=== PATIENT | female | born 1965 | race Caucasian/White ===

== ENCOUNTER 2018-03-25 19:26 | Emergency (ER) | payer BC ==
[~2018-03-25] VITALS: Ht 167.6 cm; Wt 90.7 kg
[2018-03-25] MEDS ORDERED: MEDROLDOSEPACK PO (20:30)
[2018-03-25] MEDS ORDERED: ZANAFLEX4 MG PO (20:30)
[2018-03-25] MEDS ORDERED: IBU800 MG PO (20:30)
[2018-03-25 20:51] VITALS: BP 141/88
== END 2018-03-25 20:52 | disposition home or self-care (01) ==
LOC: M.ERS 19:26
DX: M54.31 Sciatica, right side (principal); Z90.711 Acquired absence of uterus with remaining cervical stump

== ENCOUNTER 2021-03-25 18:39 | Inpatient (IN) | payer OTHER ==
[~2021-03-25] VITALS: Ht 170.2 cm; Wt 99.8 kg
[~2021-03-25 18:39] MED LIST: IBU800 MG PO; MEDROLDOSEPACK PO; ZANAFLEX4 MG PO
[2021-03-25 18:43] VITALS: BP 145/77
[2021-03-25 19:29] LABS: ABSOLUTE BASOPHILS 0.1 thou/uL (0.0-0.2); ABSOLUTE EOSINOPHILS 0.1 thou/uL (0.0-0.7); ABSOLUTE LYMPHOCYTES 1.2 thou/uL (0.8-5.3); ABSOLUTE MONOCYTES 0.4 thou/uL (0.0-1.2); ABSOLUTE NEUTROPHILS 5.4 thou/uL (1.6-8.1); BASOPHILS 0.9 %; EOSINOPHILS 1.1 %; HEMATOCRIT 43.9 % (37.0-47.0); HEMOGLOBIN 14.8 gm/dL (12.0-15.0); LYMPHOCYTES 16.4 %; MCH 30.2 pg (26.0-34.0); MCHC 33.6 g/dL (28.0-37.0); MCV 89.9 fL (80.0-100.0); MONOCYTES 5.7 %; MPV 6.6 fl. (7.2-11.1); NUCLEATED RBCS 0 /100WBC; PLATELET COUNT* 457 thou/uL (150-400); POLYS 75.9 %; RBC 4.89 mil/uL (4.20-5.00); RDW-CV 13.7 % (10.5-14.5); WBC 7.1 thou/uL (4.0-11.0)
[2021-03-25 19:36] LABS: CALCIUM 9.4 mg/dL (8.5-10.1)
[2021-03-25 19:40] LABS: BE 3.8 mmol/L (-2 to +3); PCO2 28.8 mmHg (35.0-45.0); pH 7.556 (7.340-7.450)
[2021-03-25 19:47] LABS: POTASSIUM 2.7 mmol/L (3.5-5.1); TOTAL BILIRUBIN 0.4 mg/dL (<0.1-1.0); TOTAL PROTEIN 8.2 g/dL (6.4-8.2)
--- NOTE | 2021-03-25 22:42 | NUR ---
JOSE LUJAN- SON: [phone]
[2021-03-26 02:00] VITALS: BP 122/76
[2021-03-26 05:57] VITALS: BP 152/88
[2021-03-26 07:52] LABS: CREATININE 0.9 mg/dL (0.6-1.3); POTASSIUM 3.2 mmol/L (3.5-5.1)
[2021-03-26 10:00] VITALS: BP 157/60
[2021-03-26 14:00] VITALS: BP 129/70
--- NOTE | 2021-03-26 16:13 | EKG ---
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: : [id number] Requested By: Nadine Patel Order Number: [id number] MD: Kenroy Vega Measurements Intervals [place] Rate: 112 P: 24 IN: 138 QRS: 14 QRSD: 97 T: -15 QT: 336 QTc: 459 Interpretive Statements Sinus tachycardia Low voltage, precordial leads Borderline repolarization abnormality Baseline wander in lead(s) V1 No previous ECG available for comparison Electronically Signed On 03-26-2021 16:13:44 CDT by Kenroy Vega [email or web address] <ELECTRONICALLY SIGNED> By: Kenroy Vega MD, [facility] 03/26/21 1613 [id number] 190 Kenroy Vega MD, [facility] /EPI
--- NOTE | 2021-03-26 16:22 | NUR ---
Infection Prevention: Per [facility] the patient had a positive Covid Test on 03/12/21.
[2021-03-26 17:35] VITALS: BP 129/70
[2021-03-27 00:50] VITALS: BP 124/66
--- NOTE | 2021-03-27 04:21 | NUR ---
PT ALERT AND ORIENTED, ON HHFC DURING DAY/BIPAP AT NIGHT 100%. UP AD ANSLEY TO RESTROOM, RECEIVED ALL MEDS SCHEDULED. NO WORSENING OF CONDITION/SOB. SINUS RHYTHM ON MONITOR. WILL CONTINUE TO MONITOR.
[2021-03-27 04:40] VITALS: BP 142/75
[2021-03-27 08:36] LABS: ABSOLUTE MONOCYTES 0.4 thou/uL (0.0-1.2); ABSOLUTE NEUTROPHILS 7.2 thou/uL (1.6-8.1); HEMATOCRIT 40.2 % (37.0-47.0); HEMOGLOBIN 13.7 gm/dL (12.0-15.0); LYMPHOCYTES 11.3 %; MCH 30.5 pg (26.0-34.0); MCHC 34.1 g/dL (28.0-37.0); MCV 89.5 fL (80.0-100.0); MONOCYTES 4.8 %; MPV 6.5 fl. (7.2-11.1); NUCLEATED RBCS 0 /100WBC; PLATELET COUNT* 432 thou/uL (150-400); POLYS 83.9 %; RBC 4.49 mil/uL (4.20-5.00); WBC 8.6 thou/uL (4.0-11.0)
[2021-03-27 08:51] LABS: CALCIUM 9.4 mg/dL (8.5-10.1); CREATININE 0.8 mg/dL (0.6-1.3); POTASSIUM 3.7 mmol/L (3.5-5.1)
--- NOTE | 2021-03-27 11:19 | NUR ---
The patient is alert. Able to make needs known. Denies CP or SOB. Call light within reach. Up ad joe to the BSC.
[2021-03-27 12:00] VITALS: BP 121/83
--- NOTE | 2021-03-27 14:21 | CON ---
[address] [address] CONSULTATION Name: HELENA OSPINA Room: [address] IN .R.#: [id number] Admission: 03/25/21 Attend Phys: Deepa Andersen Discharge: Date of : 69 Report #: [id number] THIS REPORT FOR: cc: Wade Fernandes MD, Ram MD Pervez, Adeel MD ~ DATE OF CONSULTATION: 03/26/2021 REQUESTING PHYSICIAN: Shorty Zacarias MD INDICATION FOR CONSULTATION: Acute hypoxemic respiratory failure secondary to COVID-19. HISTORY OF PRESENT ILLNESS: A 56-year-old female with past medical history as mentioned below. She is a lifetime nonsmoker, does not have a past history of a cardiac or respiratory disease. The patient appears to be more overweight than is apparent by her stated weight and I do suspect that she has underlying obstructive sleep apnea. The patient was diagnosed with COVID-19 about 14 days ago. She has not been vaccinated for COVID-19. She has had a waxing and waning course. Eventually, she started having increasing shortness of breath, which is the reason that she came to the emergency room here. She has had a cough, not much sputum, no chest pain, mild swelling of lower extremities, no calf pain. Does not have upper respiratory complaints. The patient; however, is very hypoxemic at this time and is requiring a heated high-flow nasal cannula to maintain O2 saturation in the low 90s. REVIEW OF SYSTEMS: The patient's review of systems for 12 points is negative except as mentioned above. PAST MEDICAL HISTORY: Obesity, gallbladder surgery, hysterectomy. SOCIAL HISTORY: Lifetime nonsmoker. Only occasional alcohol use. No known history of illegal drug use. ALLERGIES: CODEINE. CURRENT MEDICATIONS: List in [employer] reviewed. HOME MEDICATIONS: List also in [employer] reviewed. FAMILY HISTORY: No pertinent family history. PHYSICAL EXAMINATION: [place] [address] CONSULTATION Name: HELENA OSPINA Room: [address]#: [id number] Admission: 03/25/21 Attend Phys: Deepa Andersen Discharge: Date of : 69 Report #: [id number] GENERAL: She is alert, awake and oriented. VITAL SIGNS: She has a pulse of 90 and a blood pressure 130/48. She is on 90% FiO2 at 55 liters of flow on a heated high-flow nasal cannula, saturating around 94%. She is mildly tachypneic, respiratory rate in the low 20s. She is afebrile with a temperature of 36, body mass index 34. HEENT: Head is normocephalic and atraumatic. She has a narrow airway. NECK: Does not show raised JVP asymmetry, mass or lymph nodes. CHEST: Symmetrical expansion on inspection and palpation. On auscultation, breath sounds are bilaterally equal, decreased. No added sounds. HEART: Regular, no murmur. ABDOMEN: Soft and nontender. EXTREMITIES: Lower extremities show trace edema, no calf tenderness. SKIN: Dry and intact. NEUROLOGIC: Moves all extremities bilaterally equally and spontaneously. No focal deficit identified. LABORATORY DATA: The patient's chest x-ray and CTA chest reviewed. In summary, there are extensive infiltrates consistent with COVID-19. There are no pulmonary emboli identified. The study is slightly limited for pulmonary emboli, though the lab work is in [employer] and this is reviewed. Arterial blood gas shows acute hypoxemic respiratory failure, also changes secondary to hypokalemia. ASSESSMENT AND PLAN: 1. Acute hypoxemic respiratory failure secondary to COVID-19. I suspect that she has underlying obstructive sleep apnea. Therefore, we will start with BiPAP while asleep. Continue to titrate oxygen, avoid supine sleep, out of bed to chair as tolerated. 2. COVID-19, agree with dexamethasone as below. I will try to diurese her tomorrow. Therefore, I did not increase the scheduled dose of dexamethasone for now, but I will go ahead and give her a bolus of 10 mg of dexamethasone now. She is currently on 6 mg daily. If oxygen needs a persistent at the current level, then I will be inclined to increase the scheduled Decadron dose. Agree with remdesivir. Follow LFTs. Convalescent plasma likely will be of limited benefit at this time considering that she is 14 days after the diagnosis. I do recommend giving her Actemra. Unfortunately, we do not have Actemra available at this time. 3. Pulmonary infiltrates. Agree with doxycycline. In order to limit fluid intake, I switched it to p.o. We will add ceftriaxone. More cultures and serologies are ordered. 4. Fluid overload/hypokalemia. Note that her BUN is only 9. I feel that there is a component of fluid overload. Despite the fact that the proBNP is normal, which basically indicates that the right atrium is not dilated. I would like to replace the potassium first. I also requested that a magnesium will added to [address] [address] CONSULTATION Name: HELENA OSPINA Room: [address] IN [facility]#: [id number] Admission: 03/25/21 Attend Phys: Deepa Andersen Discharge: Date of : 69 Report #: [id number] the labs already drawn. Once the magnesium and potassium are replaced, I would subsequently plan to diurese her and see if this leads to improvement in O2 saturations. 5. Deep venous thrombosis prophylaxis. We will increase his Lovenox to intermediate dose. 6. Hyperglycemia, insulin sliding scale. 7. Gastrointestinal prophylaxis, already on Protonix. 8. Clostridium difficile prophylaxis, Lactinex. 9. Obesity, suspected obstructive sleep apnea. Thank you for this consultation. <ELECTRONICALLY SIGNED> By: Kwan Lyles MD 03/27/21 1421 06 2057Ajosiane Lyles MD /nt
--- NOTE | 2021-03-27 14:49 | NUR ---
Pt covid positive. On 55L, unable to speak on phone. Pt's is also in this hospital, attempted to reach x3, unable to, will continue to try and reach via phone to complete Pt's assessment. No weekend dc planned.
[2021-03-27 15:53] VITALS: BP 114/78
[2021-03-27 21:40] VITALS: BP 128/70
[2021-03-28 00:25] VITALS: BP 136/79
--- NOTE | 2021-03-28 04:18 | NUR ---
PT ALERT AND ORIENTED, UP TO COMMODE AD ANSLEY, REFUSES BIPAP AT NIGHT SHE IS ON HHFC 55L 85% AT THIS TIME AND SAT 88-90%. RECEIVED ALL MEDS SCHEDULED. SOB WITH EXERTION. SINUS RHYTHM ON MONITOR. WILL CONTINUE TO MONITOR.
[2021-03-28 04:27] VITALS: BP 135/83
[2021-03-28 05:32] LABS: HEMATOCRIT 39.2 % (37.0-47.0); HEMOGLOBIN 13.3 gm/dL (12.0-15.0); MCH 30.4 pg (26.0-34.0); MCHC 33.8 g/dL (28.0-37.0); MCV 89.9 fL (80.0-100.0); MPV 6.7 fl. (7.2-11.1); NUCLEATED RBCS 0 /100WBC; PLATELET COUNT* 374 thou/uL (150-400); RBC 4.36 mil/uL (4.20-5.00); WBC 9.3 thou/uL (4.0-11.0)
[2021-03-28 06:01] LABS: ALBUMIN 2.7 g/dL (3.4-5.0); CALCIUM 9.1 mg/dL (8.5-10.1); CREATININE 0.9 mg/dL (0.6-1.3); MAGNESIUM 2.1 mg/dL (1.8-2.4); TOTAL BILIRUBIN 0.2 mg/dL (<0.1-1.0); TOTAL PROTEIN 7.4 g/dL (6.4-8.2)
[2021-03-28 06:35] LABS: ABSOLUTE LYMPHOCYTES 0.7 thou/uL (0.8-5.3); ABSOLUTE MONOCYTES 0.1 thou/uL (0.0-1.2); ABSOLUTE NEUTROPHILS 8.5 thou/uL (1.6-8.1); PLATELET ESTIMATE ADEQUATE
[2021-03-28 08:00] VITALS: BP 150/87
[2021-03-28 12:12] VITALS: BP 140/77
[2021-03-28 16:00] VITALS: BP 137/75
--- NOTE | 2021-03-28 20:41 | NUR ---
I ASSUMED CARE OF THE PATIENT AT 0700. SHE IS ALERT AND ORIENTED X4 AND IS UP WITH SBA. BED IS IN THE LOW LOCKED POSITION AND CALL LIGHT IS IN REACH. PATIENT NEEDS ARE MET DURING HOURLY ROUNDING AND PAIN IS DENIED. OXYGEN USE IS DECREASED AND CHARTED BY RT. SHE HAD MULTIPLE BOWEL MOVEMENTS. BLOOD GLUCOSE WAS MONITORED. SPIRITS ARE IMPROVING AND PATIENT STATES THAT SHE IS FEELING MUCH BETTER. SHE REFUSES BIPAP BECUASE OF THE PRESSURE. WILL CONTINUE TO MONITOR.
[2021-03-28 21:00] VITALS: BP 128/59
[2021-03-29 00:27] VITALS: BP 128/71
[2021-03-29 04:12] VITALS: BP 118/66
--- NOTE | 2021-03-29 05:11 | NUR ---
PT AO X4 SITTING IN RECLINER WHERE SHE STATED ALL NIGHT, SHE HAS HFNC 15L IN PLACE, SATTING APPROPRIATELY. PT HAS PICC TO RUE THAT DRAWS AND FLUSHES WELL. PT REPORTS FEELING BETTER AND IS ANXIOUS TO GO HOME SOON. PT IS USING BSC NEAR CHAIR INDEPENDENTLY. URINE IS CLEAR, YELLOW AND ADEQUATE AMOUNTS. PT REPORTS DIARRHEA IN RECENT DAYS BUT HAS SUBSIDED TODAY. LUNGS ARE DIMINISHED WITH PRODUCTIVE COUGH AT TIMES. MEDS PER EMAR, CRUSHED PT REPORTS HAVING SOME DIFFICLULTLY SWALLOWING PILLS. CALL LIGHT WITHIN REACH FOR PT SAFETY
[2021-03-29 08:00] VITALS: BP 142/74
[2021-03-29 11:26] VITALS: BP 113/61
[2021-03-29 18:03] VITALS: BP 128/67
--- NOTE | 2021-03-29 18:43 | NUR ---
RECEIVED REPORT AROUND 0715. ASSUMED CARE. VS AND ASSESSMENT CHARTED. IV INTACT RIGHT UPPER ARM PICC DOUBLE LUMEN. HEART MONITOR ATTACHED AT SR. PT UP IN CHAIR THIS SHIFT. MEDS GIVEN PER SEP. HOURLY ROUNDING PERFORMED. ISOLATION INTACT. BOWEL MOVEMENT TODAY. HI FLOW 13L. CALL LIGHT WITH IN REACH. WILL CONTINUE TO MONITOR.
[2021-03-30] VITALS: BP 108/61
[2021-03-30 04:00] VITALS: BP 111/67
--- NOTE | 2021-03-30 04:48 | NUR ---
PT AO X4 STILL IN RECLINER FROM YESTERDAY. PT REPORTS FEELING BETTER, OXYGEN USE DOWN TO 13L HFNC, SHE IS COUGHING MORE WITH SOME CLEAR PRODUCTION. OXYGEN SAT MAINTAINED 88-94 ALL NIGHT. STOOLS STILL SOFT, PT UP TO BSC INDEPENDENTLY WITHOUT ISSUE. PICC IN RUE, FLUSHES AND DRAWS BLOOD WELL. PT DENIES PAIN. CALL LIGHT IN REACH FOR SAFETY OF PT
[2021-03-30 04:52] LABS: ALBUMIN 2.9 g/dL (3.4-5.0); CALCIUM 9.4 mg/dL (8.5-10.1); CREATININE 0.9 mg/dL (0.6-1.3); MAGNESIUM 2.2 mg/dL (1.8-2.4); POTASSIUM 4.4 mmol/L (3.5-5.1); TOTAL BILIRUBIN 0.3 mg/dL (<0.1-1.0); TOTAL PROTEIN 7.2 g/dL (6.4-8.2)
[2021-03-30 05:05] LABS: ABSOLUTE LYMPHOCYTES 0.9 thou/uL (0.8-5.3); ABSOLUTE MONOCYTES 0.4 thou/uL (0.0-1.2); ABSOLUTE NEUTROPHILS 10.8 thou/uL (1.6-8.1); BASOPHILS 0.2 %; HEMATOCRIT 40.6 % (37.0-47.0); HEMOGLOBIN 13.7 gm/dL (12.0-15.0); LYMPHOCYTES 7.5 %; MCH 30.3 pg (26.0-34.0); MCHC 33.7 g/dL (28.0-37.0); MCV 89.7 fL (80.0-100.0); MONOCYTES 3.2 %; MPV 6.7 fl. (7.2-11.1); NUCLEATED RBCS 0 /100WBC; PLATELET COUNT* 386 thou/uL (150-400); POLYS 89.1 %; RBC 4.52 mil/uL (4.20-5.00); WBC 12.1 thou/uL (4.0-11.0)
[2021-03-30 08:00] VITALS: BP 120/72
[2021-03-30 12:00] VITALS: BP 110/70
--- NOTE | 2021-03-30 14:26 | NUR ---
Pt down to 7L, wean to 4L then will be medically ready to dc. Anticipate dc in 1-2 days. Ex ox at dc
[2021-03-30 16:00] VITALS: BP 112/65
--- NOTE | 2021-03-30 18:56 | NUR ---
RECEIVED REPORT AROUND 0715. ASSUMED CARE. VS AND ASSESSMENT CHARTED. IV INTACT. HEART MONITOR ATTACHED AT SR/ST. PT UP ADLIB TO BSC. MEDS GIVEN PER MAR. HOURLY ROUNDING PERFORMED. ISOLATION INTACT. CALL LIGHT WITH IN REACH. WILL CONTINUE TO MONITOR.
[2021-03-31 00:48] VITALS: BP 118/69
[2021-03-31 04:30] VITALS: BP 113/66
--- NOTE | 2021-03-31 05:11 | NUR ---
PT AO X4 ON 8L HFNC, SATTING IN MID 90s, COUGHING MORE BUT LITTLE PRODUCTION, SHE DID START DE-SATTING INTO HIGH 80S LAST PM AND WAS INCREASED TO 10L HFNC. PT LUNGS ARE CLEAR IN UPPERS WITH SOME FINE CRACKLES IN LOWERS. REPORTS BM THAT WAS SOFT BUT NOT DIARRHEA IT HAS BEEN PREVIOUSLY. PT ENCOURAGE TO DO INCENTIVE SPIROMETER 10X/HR TO IMPROVE LUNG FX. MEDS PER MAR, PT FEELING ENCOURAGED WITH PROGRESS.
[2021-03-31 05:50] LABS: CALCIUM 9.8 mg/dL (8.5-10.1); CREATININE 0.9 mg/dL (0.6-1.3); MAGNESIUM 2.4 mg/dL (1.8-2.4); POTASSIUM 4.7 mmol/L (3.5-5.1)
[2021-03-31 07:30] VITALS: BP 123/69
[2021-03-31 11:25] VITALS: BP 126/65
--- NOTE | 2021-03-31 12:23 | NUR ---
Nutrition: Pt admitted to COVID unit. Assessed for LOS. H/o OBE, suspected MARNI. Bipap HS. Wt: 219#. 2gm Na diet. Per RN, pt is eating well. BG 167, alb 2.9, prealb 26.1. Remdesivir, lasix. Consider low nutrition risk.
--- NOTE | 2021-03-31 15:14 | NUR ---
Pt on 15L, continue to wean to below 10 prior to dc.
[2021-03-31 16:00] VITALS: BP 119/61
--- NOTE | 2021-03-31 16:56 | NUR ---
PT REMAINED ALERT AND ORIENTED. PT RESTING IN CHAIR. ACCU CHECKS COMPLETED. HEART MONITORED. FALL RISK PRECAUTIONS IN PLACE. HOURLY ROUNDING COMPLETED. CALL LIGHT WITHIN REACH.
[2021-03-31 21:26] VITALS: BP 106/69
[2021-04-01 00:46] VITALS: BP 118/67
[2021-04-01 04:24] VITALS: BP 111/68
[2021-04-01 07:15] VITALS: BP 130/71
[2021-04-01 11:25] VITALS: BP 121/72
--- NOTE | 2021-04-01 16:02 | NUR ---
Pt at day 21 since diagnosis. On 15L. Pt will be inpt for several more days.
--- NOTE | 2021-04-01 17:13 | NUR ---
PT REMAINED ALERT AND ORIENTED. PT UP IN CHAIR ALL DAY. ACCU CHECKS COMPLETED. ISOLATION D/C. HEART MONITORED. HOURLY ROUNDING COMPLETED. CALL LIGHT WITHIN REACH.
[2021-04-01 17:20] VITALS: BP 128/68
[2021-04-01 21:00] VITALS: BP 120/68
[2021-04-02] VITALS: BP 141/69
[2021-04-02 04:00] VITALS: BP 113/69
[2021-04-02 06:36] LABS: HEMATOCRIT 43.9 % (37.0-47.0); HEMOGLOBIN 14.4 gm/dL (12.0-15.0); MCHC 32.9 g/dL (28.0-37.0); MCV 91.3 fL (80.0-100.0); MPV 6.8 fl. (7.2-11.1); RBC 4.81 mil/uL (4.20-5.00); RDW-CV 14.2 % (10.5-14.5); WBC 11.8 thou/uL (4.0-11.0)
[2021-04-02 06:46] LABS: CREATININE 0.8 mg/dL (0.6-1.3)
--- NOTE | 2021-04-02 07:40 | NUR ---
PT SLEPT MOST OF SHIFT. ASSESSMENT DOCUMENTED. MEDS GIVEN PER E-MAR. IV PATENT. NO REPORTS OF PAIN. PT REMAINED IN CHAIR ALL SHIFT. 11L NC. PT ABLE TO MAKE NEEDS KNOWN. WILL CONTINUE WITH PLAN OF CARE.
[2021-04-02 08:30] VITALS: BP 132/73
[2021-04-02 12:00] VITALS: BP 135/73
--- NOTE | 2021-04-02 15:11 | NUR ---
Pt down to 10L, continue to wean. Ex ox closer to dc.
[2021-04-02 16:00] VITALS: BP 136/70
[2021-04-02] MEDS ORDERED: DEXAMETHASONE1 MG PO (17:00)
[2021-04-02] MEDS ORDERED: PROAIR HFA8.5 GM INH (17:00)
[2021-04-02] MEDS ORDERED: PROTONIX40 M2 PO (17:00)
[2021-04-02 17:58] VITALS: BP 136/70
--- NOTE | 2021-04-02 19:01 | NUR ---
I ASSUMED CARE OF THE PATIENT AT 0700. SHE IS ALERT AND ORIENTED X4 AND IS UP WITH SBA. BED IS IN THE LOW LOCKED POSITION AND CALL LIGHT IS ON. PATIENT NEEDS ARE MET DURING HOURLY ROUNDING AND PAIN IS DENIED. OXYGEN IS TITRATED DOWN AND TOLERATED WELL. REST AND EXERCISE WAS DONE AND PATIENT WILL NEED 3L AT REST AND 4L DURING ACTIVITY AT HOME. JANETT WAS CONTACTED AND WILL FOLLOW UP WITH CASE MANAGMENT TOMORROW. SHE WILL DISCHARGE TO HOME WITH HER SON WHEN HE ARRIVES. BLOOD GLUCOSE IS MONITORED. RIDE WENT TO [facility], SO PATIENT IS BACK IN HER ROOM UNTIL HE ARRIVES. PICC LINE WAS D/C'D AND INTACT. PRESSURE WAS APPLIED AND PRESSURE DRESSING WAS UTILIZED.
== END 2021-04-02 19:10 | disposition home or self-care (01) | DRG 177 ==
LOC: M.ERS 18:39 → M.TBA-ER 20:17 → M.ORTHSURG 20:17
PROVIDERS: Emergency Medicine; Family Medicine; Internal Medicine; Internal Medicine Critical Care Medicine; Nurse Practitioner Family; ADMIT Internal Medicine; ATTEND Internal Medicine
PROC: 5A0955A Assistance with Respiratory Ventilation, Greater than 96 Consecutive Hours, High Flow/Velocity Cannula (ICD-10-PCS; principal; 2021-03-25)
PROC: XW033E5 Introduction of Remdesivir Anti-infective into Peripheral Vein, Percutaneous Approach, New Technology Group 5 (ICD-10-PCS; 2021-03-26)
PROC: 02HV33Z Insertion of Infusion Device into Superior Vena Cava, Percutaneous Approach (ICD-10-PCS; 2021-03-29)
PROC: B5181ZA Fluoroscopy of Superior Vena Cava using Low Osmolar Contrast, Guidance (ICD-10-PCS; 2021-03-29)
PROC: B548ZZA Ultrasonography of Superior Vena Cava, Guidance (ICD-10-PCS; 2021-03-29)
PROC: 5A0935A Assistance with Respiratory Ventilation, Less than 24 Consecutive Hours, High Flow/Velocity Cannula (ICD-10-PCS; 2021-03-31)
PROC: 5A0935A Assistance with Respiratory Ventilation, Less than 24 Consecutive Hours, High Flow/Velocity Cannula (ICD-10-PCS; 2021-04-01)
DX: U07.1 COVID-19 (principal); J80 Acute respiratory distress syndrome; J12.82 Pneumonia due to coronavirus disease 2019; E66.9 Obesity, unspecified; R73.9 Hyperglycemia, unspecified; E87.6 Hypokalemia; E87.70 Fluid overload, unspecified; G47.33 Obstructive sleep apnea (adult) (pediatric); Z90.710 Acquired absence of both cervix and uterus; Z68.34 Body mass index [BMI] 34.0-34.9, adult; Z88.6 Allergy status to analgesic agent; Z79.899 Other long term (current) drug therapy